=== PATIENT | male | born 1975 | race Caucasian/White ===

== ENCOUNTER 2017-05-27 10:03 | Emergency (ER) | payer BC, OTHER, SELFPAY ==
--- NOTE | 2017-05-27 11:14 | CT ---
CT OF HEAD NONCONTRAST: Indication: New onset dizziness. FINDINGS: Comparison is made 12-06-15. Ventricular system is normal. There is no intracranial hemorrhage, mass effect, or midline shift. Par tially imaged fluid level of the right maxillary sinus is present. IMPRESSION: No acute intracranial abnormalities. POS: [facility]
--- NOTE | 2017-05-27 11:16 | RAD ---
FRONTAL VIEW CHEST: Comparison: 01-14-15 Indication: New onset dizziness. FINDINGS: Mild elevation of the left hemidiaphragm. Cardiac silhouette is accentuated with portable technique. There is no lobar consolidation, significant effusion, or discrete infarction. IMPRESSION: No focal consolidation. POS: [facility]
[2017-05-27 11:19] LABS: #Eosinphils 0.1 thou/uL (0.0-0.7); #Lymphocytes 1.8 thou/uL (1.20-3.40); #Monocytes 0.6 thou/uL (0.11-0.59); #Neutrophils 5.5 thou/uL (1.40-6.50); %Basophils 0.4 % (0.0-1.0); %Lymphocytes 22.2 % (21.0-51.0); %Monocytes 6.9 % (0.0-10.0); %Neutrophils 69.4 % (42.0-75.0); Hemoglobin 14.2 g/dL (14.0-18.0); Mean Corpuscular HGB CONC 33.8 g/dL (32.0-36.0); Mean Corpuscular Hemoglobin 31.3 pg (27.0-31.0); Mean Corpuscular Volume 92.6 fl (80.0-94.0); Mean Platelet Volume 6.8 fL (7.4-10.4); Platelet Count 275 thou/uL (130-400); RBC Distribution Width 11.5 % (11.5-14.5); Red Blood Cell (RBC) Count 4.55 mill/uL (4.70-6.10)
[2017-05-27 11:30] LABS: ALT (SGPT) 31 U/L (8-55); AST (SGOT) 22 U/L (5-34); Albumin 4.2 g/dL (3.5-5.0); Alkaline Phosphatase 39 U/L (40-150); Anion Gap 12 mmol/L (10-20); BUN (Urea Nitrogen) 17 mg/dL (8.9-20.6); Bilirubin, Total 0.2 mg/dL (0.2-1.2); Calc. Creatinine Clearance 0 mL/min (70-130); Calcium 9.4 mg/dL (7.8-10.44); Carbon Dioxide 28 mmol/L (22-29); Chloride 105 mmol/L (98-107); Estimated GFR-MDRD 84; Glucose 109 mg/dL (70-105); Potassium 4.1 mmol/L (3.5-5.1); Protein, Total 7.2 g/dL (6.0-8.3); Sodium 141 mmol/L (136-145)
[2017-05-27 11:31] LABS: CKMB 1.8 ng/mL (0-6.6); Troponin I Less than 0.010 ng/mL (< 0.028)
[2017-05-27 11:39] LABS: PTT 26.3 SEC (22.9-36.1); Prothrombin Time 12.8 SEC (12.0-14.7)
[2017-05-27 11:40] LABS: D-Dimer Test 0.32 *mcg/mL (0.27-0.43)
[2017-05-27] MEDS ORDERED: Metoclopramide HCl 10 MG/2 ML VIAL ONE (13:06)
[2017-05-27] MEDS ORDERED: Meclizine HCl 25 MG TAB ONE (13:06)
[2017-05-27] MEDS ORDERED: diphenhydrAMINE 50 MG/ML VIAL ONE (13:06)
[2017-05-27] MEDS ORDERED: Ketorolac Tromethamine 30 MG/ML VIAL ONE (13:06)
[2017-05-27] MEDS ORDERED: Acetaminophen 500 MG TAB ONE (13:06)
--- NOTE | 2017-06-20 21:50 | EKG ---
Test Reason : DIZZINESS Blood Pressure : / mmHG Vent. Rate : 054 BPM Atrial Rate : 054 BPM P-R Int : 158 ms QRS Dur : 078 ms QT Int : 398 ms P-R-T Axes : 039 -03 011 degrees QTc Int : 377 ms Sinus bradycardia Minimal voltage criteria for LVH, may be normal variant Borderline ECG Confirmed by JACQUE BUCHANAN ([id number]), web editor DAVID SEALS ([id number]) on 06/20/2017 9:49:47 PM Referred By: DEWAYNE Confirmed By:JACQUE BUCHANAN
== END 2017-05-27 14:02 | disposition home or self-care (01) ==
LOC: ERS 10:03
DX: G43.909 Migraine, unspecified, not intractable, without status migrainosus (principal)
CPT/HCPCS: 70450; 71045; 80053; 82553; 83605; 84484; 85025; 85379; 85610; 85730; 93005; 96365; 96375; J1200; J1885; J2765